=== PATIENT | male | born 1985 | race African-American/Black ===

== ENCOUNTER 2018-04-26 07:58 | Emergency (ER) | payer OTHER ==
[~2018-04-26] VITALS: Ht 188 cm; Wt 90.3 kg
[2018-04-26] MEDS ORDERED: INTESTINEX680 M1 PO (16:50)
[2018-04-26] MEDS ORDERED: DICY20TA PO (16:50)
== END 2018-04-26 17:06 | disposition home or self-care (01) ==
LOC: ER 07:58
DX: R10.84 Generalized abdominal pain (principal); R05 Cough

== ENCOUNTER 2022-09-15 16:46 | Emergency (ER) | payer OTHER ==
[~2022-09-15] VITALS: Ht 188 cm; Wt 97.5 kg
[~2022-09-15 16:46] MED LIST: DICY20TA PO; INTESTINEX680 M1 PO
== END 2022-09-15 18:23 | disposition home or self-care (01) ==
LOC: ER 16:46
DX: M79.675 Pain in left toe(s) (principal)

== ENCOUNTER 2024-05-12 08:43 | Emergency (ER) | payer OTHER ==
[~2024-05-12] VITALS: Ht 188 cm; Wt 99.3 kg
== END 2024-05-12 12:20 | disposition home or self-care (01) ==
LOC: ER 08:44
DX: H92.02 Otalgia, left ear (principal)

== ENCOUNTER 2024-09-20 18:46 | Emergency (ER) | payer OTHER ==
[~2024-09-20] VITALS: Ht 188 cm; Wt 97.5 kg
[2024-09-20 19:13] VITALS: BP 136/88; O2SAT 97
[2024-09-20] MEDS ORDERED: ORPHENADRINE CITRATE 30 MG/ML AMPUL IM STA (20:11)
[2024-09-20] MEDS ORDERED: KETOROLAC TROMETHAMINE 30 MG VIAL IM STA (20:11)
[2024-09-20] MEDS ORDERED: KETOROLAC TROMETHAMINE 30 MG VIAL ONE (20:42)
[2024-09-20 22:08] LABS: COVID-19 AG NEGATIVE (NEGATIVE); INFLUENZA A AG NEGATIVE (NEGATIVE)
== END 2024-09-20 22:17 | disposition home or self-care (01) ==
LOC: ER 18:46
PROVIDERS: General Practice
DX: S19.9XXA Unspecified injury of neck, initial encounter (principal); V49.88XA Car occupant (driver) (passenger) injured in other specified transport accidents, initial encounter; Y93.89 Activity, other specified; Y92.89 Other specified places as the place of occurrence of the external cause; Y99.8 Other external cause status; M54.2 Cervicalgia; Z20.822 Contact with and (suspected) exposure to COVID-19